=== PATIENT | male | born 1950 | race Caucasian/White ===

== ENCOUNTER 2017-01-04 11:52 | Emergency (ER) | payer MEDICARE ==
[2017-01-04 12:13] VITALS: PULSE 72; RESP 16; TEMP 97; O2SAT 99
--- NOTE | 2017-01-04 12:58 | ED PDOC ---
HPI: Skin/Bite Injury Chief Complaint (Nursing): ENT Problem History Per: Patient History/Exam Limitations: no limitations Onset/Duration Of Symptoms: Days Current Symptoms Are (Timing): Still Present Quality Of Symptoms: Swollen Additional Complaint(s): 66-year-old male, PMHx includes HIV, Hypertension and Hypercholesterolemia, presents to the emergency department with complaints of mass behind the left ear x4 days. Patient states he noticed the area while he was taking a shower. States it became progressively swollen and painful, resulting in him coming to the ED for evaluation. Denies fevers, chills, nausea/vomiting, diarrhea, back pain, neck pain, dizziness, or any other associated symptoms. No other complaints at this time. Past Medical History Reviewed: Historical Data, Nursing Documentation, Vital Signs Vital Signs: Last Vital Signs Temp 97.0 F L 01/04/17 12:09 Pulse 72 01/04/17 12:09 Resp 16 01/04/17 12:09 BP 159/76 H 01/04/17 12:09 Pulse Ox 99 01/04/17 13:07 - Medical History PMH: Hepatitis (C), HIV, HTN, Obstructive Bowel - Family History Family History: States: Unknown Family Hx - Immunization History Hx Tetanus Toxoid Vaccination: Yes Hx Influenza Vaccination: No Hx Pneumococcal Vaccination: Yes - Home Medications Home Medications: Ambulatory Orders Medication Instructions Recorded Albuterol HFA [Ventolin HFA 90 2 puff IH [id number] #0 puff 09/29/13 mcg/actuation (8 g)] Spacer, Inhalation [Aerochamber] 1 dev IH PRN PRN #1 dev 09/29/13 - Allergies Allergies/Adverse Reactions: Allergies Allergy/AdvReac Type Severity Reaction Status Date / Time No Known Allergies Allergy Verified 01/04/17 12:58 Review of Systems ROS Statement: Except As Marked, All Systems Reviewed And Found Negative Constitutional: Negative for: Fever, Chills ENT: Positive for: Other (mass behind left ear) Respiratory: Negative for: Cough, Shortness of Breath Gastrointestinal: Negative for: Nausea, Vomiting Musculoskeletal: Negative for: Neck Pain, Back Pain Skin: Positive for: Lesions. Negative for: Rash Physical Exam - Reviewed Nursing Documentation Reviewed: Yes Vital Signs Reviewed: Yes - Physical Exam Appears: Positive for: Non-toxic, No Acute Distress Head Exam: Positive for: ATRAUMATIC, NORMOCEPHALIC Skin: Positive for: Warm, Dry. Negative for: Rash ENT: Positive for: Other (Left ear: There is a fluctuant lesion w/ visible white head and surrounding erythema, behind the pinna. No mastoid tenderness. No lymphadenopathy). Negative for: Nasal Congestion, Pharyngeal Erythema, Tonsillar Exudate Neck: Positive for: Painless ROM, Supple Cardiovascular/Chest: Positive for: Regular Rate, Rhythm Respiratory: Positive for: Normal Breath Sounds. Negative for: Accessory Muscle Use, Respiratory Distress Extremity: Positive for: Normal ROM Neurologic/Psych: Positive for: Alert, Oriented - ECG O2 Sat by Pulse Oximetry: 99 Medical Decision Making Medical Decision Making: Impression: 66y/o M w/ mildly tender, fluctuant mass behind left pinna. Plan: * I&D * Reassess and Discharge PROCEDURE: INCISION & DRAINAGE Performed by the emergency provider Indication: Abscess Location: Behind left pinna Preparation: The area was prepped and draped in the usual sterile fashion and was cleansed with [place]. Local infiltration of Lidocaine 1% with Epi was used for anesthesia. Procedure: The most fluctuant portion of the abscess was incised with a #11 scalpel. Approximately 3cc's of pus was obtained. The abscess was packed. A dressing was applied by the RN. Post-Procedure: On exam the abscess is notably less fluctuant. The patient tolerated the procedure well, and there were no complications. Scribe Attestation: Documented by Xochilt Tesfaye, acting as a scribe for GEORGI Thompson.
[2017-01-04 13:27] VITALS: BP 147/83
== END 2017-01-04 13:26 | disposition home or self-care (01) ==
LOC: H.ER 11:52
DX: H60.02 Abscess of left external ear (principal)